=== PATIENT | female | born 1990 | race Hispanic/Latino ===

== ENCOUNTER 2018-06-05 18:06 | Emergency (ER) | payer OTHER ==
[~2018-06-05] VITALS: Ht 157.5 cm; Wt 81.2 kg
[2018-06-05] MEDS ORDERED: METOCLOPRAMIDE HCL 10 MG/2ML VIAL IV ONE (18:30)
[2018-06-05] MEDS ORDERED: SODIUM CHLORIDE 0.9% 500ML 500 ML IV ONE (18:30)
[2018-06-05] MEDS ORDERED: DEXAMETHASONE SOD PHOS 10 MG/1 ML VIAL IV ONE (18:30)
[2018-06-05] MEDS ORDERED: DIPHENHYDRAMINE HCL INJ 50 MG/ML VIAL IV ONE (18:30)
--- NOTE | 2018-06-05 20:09 | Diagnostic Imaging Report ---
Examination: CT BRAIN WITHOUT CONTRAST History:Acute onset headache. Comparison studies:None Technique: Axial images were obtained from the skull base to the vertex. Coronal and sagittal images reconstructed from the axial data. Intravenous contrast: None Findings: Scalp: No abnormalities. Bones: No fractures, blastic or lytic lesions. Brain sulci: Appropriate for age. Ventricles: Normal in size and configuration. No hydrocephalus. Extra-axial space: No abnormalities. Parenchyma: No abnormal densities. No masses, hemorrhage, or acute or chronic cortical based vascular insults. Sellar/suprasellar region: No abnormalities. Craniocervical junction: Patent foramen magnum. No Chiari one malformation. Incidental findings: None. Impression: No intracranial abnormalities. Signed by: Dr. Kacey Malave M.D. on 06/05/2018 8:06 PM
[2018-06-05 20:42] VITALS: BP 103/50
[2018-06-05] MEDS ORDERED: FIORICET PO (20:42)
== END 2018-06-05 20:46 | disposition home or self-care (01) ==
LOC: ER 18:06
DX: G44.221 Chronic tension-type headache, intractable (principal); G43.719 Chronic migraine without aura, intractable, without status migrainosus
CPT/HCPCS: 36415; 70450; 84702; 93005; 99284; J1100; J1200; J2765; J7040